=== PATIENT | male | born 1990 | race Caucasian/White ===

== ENCOUNTER 2018-12-16 06:08 | Emergency (ER) | payer SELFPAY ==
[2018-12-16] MEDS ORDERED: Sodium Chloride 0.9% 1,000 ML IV ONE (06:27)
--- NOTE | 2018-12-16 06:34 | EDM.PDOC ---
<Sidney Pappas - Last Filed: 12/16/18 06:46> ED HPI GENERAL MEDICAL PROBLEM - General Chief Complaint: Gastrointestinal Problem Stated Complaint: DIARRHEA Time Seen by Provider: 12/16/18 06:32 Source of Information: Reports: Patient - History of Present Illness INITIAL COMMENTS - FREE TEXT/NARRATIVE: HISTORY AND PHYSICAL: History of present illness: [Patient presents with loose stools he states up to 25 loose stools daily for four days no blood or mucus mild abdominal cramping No current fever nausea vomiting chills sweats ] Review of systems: As per history of present illness and below otherwise all systems reviewed and negative. Past medical history: As per history of present illness and as reviewed below otherwise noncontributory. Surgical history: As per history of present illness and as reviewed below otherwise noncontributory. Social history: No reported history of drug or alcohol abuse. Family history: As per history of present illness and as reviewed below otherwise noncontributory. Physical exam: HEENT: Atraumatic, normocephalic, pupils reactive, negative for conjunctival pallor or scleral icterus, mucous membranes moist, throat clear, neck supple, nontender, trachea midline. Lungs: Clear to auscultation, breath sounds equal bilaterally, chest nontender. Heart: S1S2, regular, negative for clicks, rubs, or JVD. Abdomen: Soft, nondistended, nontender. Negative for masses or hepatosplenomegaly. Negative for costovertebral tenderness. Pelvis: Stable nontender. Genitourinary: Deferred. Rectal: Deferred. Extremities: Atraumatic, negative for cords or calf pain. Neurovascular unremarkable. Neuro: Awake, alert, oriented. Cranial nerves II through XII unremarkable. Cerebellum unremarkable. Motor and sensory unremarkable throughout. Exam nonfocal. Diagnostics: [CBC CMP UA Stool culture, guaiac, O&P, c. diff Normal virus rotavirus Abdomen flat and upright Therapeutics: [Normal saline Patient will be signed out at shift change follow lab and redirect ] Impression: [Diarrhea ] Definitive disposition and diagnosis as appropriate pending reevaluation and review of above. abdominal cramps Pain Score (Numeric/FACES): 4 - Related Data Allergies Allergy/AdvReac Type Severity Reaction Status Date / Time No Known Allergies Allergy Verified 12/16/18 06:17 Home Meds: Home Meds . [No Known Home Meds] 12/16/18 [History] Past Medical History HEENT History: Reports: None Cardiovascular History: Reports: None Respiratory History: Reports: None Gastrointestinal History: Reports: None Genitourinary History: Reports: None Musculoskeletal History: Reports: None Neurological History: Reports: None Psychiatric History: Reports: Depression Endocrine/Metabolic History: Reports: None Hematologic History: Reports: None Immunologic History: Reports: None Oncologic (Cancer) History: Reports: None Dermatologic History: Reports: None - Infectious Disease History Infectious Disease History: Reports: None - Past Surgical History Head Surgeries/Procedures: Reports: None Social & Family History - Family History Family Medical History: Noncontributory - Tobacco Use Smoking Status *Q: Never Smoker - Caffeine Use Caffeine Use: Reports: Coffee, Energy Drinks - Recreational Drug Use Recreational Drug Use: No Course - Vital Signs Last Recorded V/S: Last Vital Signs Temp 36.4 C 12/16/18 06:18 Pulse 86 12/16/18 06:18 Resp 18 12/16/18 06:18 BP 130/82 12/16/18 06:18 Pulse Ox 98 12/16/18 06:18 - Orders/Labs/Meds Orders: Active Orders 24 hr Category Date Time Status CULTURE STOOL + CAMPY+SHIGATOX [RM] Stat Lab 12/16/18 06:30 Results NOROVIRUS, RT-PCR Stat Lab 12/16/18 07:21 Received OVA & PARASITES BY IMMUNOASSAY [MREF] Stat Lab 12/16/18 06:30 Ordered ROTAVIRUS ANTIGEN [MREF] Stat Lab 12/16/18 06:32 Ordered Isolation [COMM] Stat Oth 12/16/18 06:31 Ordered Labs: Laboratory Tests 12/16/18 12/16/18 12/16/18 Range/Units 06:28 06:44 06:44 WBC 7.09 (4.0-11.0) K/uL RBC 5.54 (4.50-5.90) M/uL Hgb 17.9 H (13.0-17.0) g/dL Hct 50.1 H (38.0-50.0) % MCV 90.4 (80.0-98.0) fL MCH 32.3 H (27.0-32.0) pg MCHC 35.7 (31.0-37.0) g/dL RDW Std Deviation 41.5 (28.0-62.0) fl RDW Coeff of Marvin 13 (11.0-15.0) % Plt Count 189 (150-400) K/uL MPV 9.50 (7.40-12.00) fL Neut % (Auto) 44.4 L (48.0-80.0) % Lymph % (Auto) 38.6 (16.0-40.0) % [place] % (Auto) 14.7 (0.0-15.0) % Eos % (Auto) 2.0 (0.0-7.0) % Baso % (Auto) 0.3 (0.0-1.5) % Neut # (Auto) 3.2 (1.4-5.7) K/uL Lymph # (Auto) 2.7 H (0.6-2.4) K/uL [place] # (Auto) 1.0 H (0.0-0.8) K/uL Eos # (Auto) 0.1 (0.0-0.7) K/uL Baso # (Auto) 0.0 (0.0-0.1) K/uL Nucleated RBC % 0.0 /100WBC Nucleated RBCs # 0 K/uL Sodium 134 L (136-148) mmol/L Potassium 3.8 (3.5-5.1) mmol/L Chloride 100 (98-107) mmol/L Carbon Dioxide 22.9 (21.0-32.0) mmol/L BUN 12 (7.0-18.0) mg/dL Creatinine 1.1 (0.8-1.3) mg/dL Est Cr Clr Drug Dosing TNP Estimated GFR (MDRD) > 60.0 ml/min Glucose 96 (74-106) mg/dL Calcium 8.9 (8.5-10.1) mg/dL Total Bilirubin 0.8 (0.2-1.0) mg/dL AST 48 H (15-37) IU/L ALT 75 H (14-63) IU/L Alkaline Phosphatase 95 (46-116) U/L Total Protein 8.7 H (6.4-8.2) g/dL Albumin 4.3 (3.4-5.0) g/dL Globulin 4.4 H (2.6-4.0) g/dL Albumin/Globulin Ratio 1.0 (0.9-1.6) Urine Color YELLOW Urine Appearance CLEAR Urine pH 6.0 (5.0-8.0) Ur Specific [place] 1.025 (1.001-1.035) Urine Protein NEGATIVE (NEGATIVE) mg/dL Urine Glucose (UA) NEGATIVE (NEGATIVE) mg/dL Urine Ketones NEGATIVE (NEGATIVE) mg/dL Urine Occult Blood NEGATIVE (NEGATIVE) Urine Nitrite NEGATIVE (NEGATIVE) Urine Bilirubin NEGATIVE (NEGATIVE) Urine Urobilinogen 0.2 (<2.0) EU/dL Ur Leukocyte Esterase NEGATIVE (NEGATIVE) Urine RBC 0-1 (0-2/HPF) Urine WBC 0-1 (0-5/HPF) Ur Epithelial Cells RARE (NONE-FEW) Urine Bacteria RARE (NEGATIVE) Meds: Medications Discontinued Medications Generic Name Dose Route Start Last Admin Trade Name Freq PRN Reason Stop Dose Admin Dicyclomine HCl 20 mg 12/16/18 07:04 12/16/18 07:23 Bentyl PO 12/16/18 07:05 20 mg ONETIME ONE Administration Sodium Chloride 1,000 mls @ 999 mls/hr 12/16/18 06:27 12/16/18 06:45 Normal Saline IV 12/16/18 07:27 999 mls/hr .Bolus ONE Administration Departure - Departure Disposition: Home, Self-Care 01 Clinical Impression: Diarrhea - Discharge Information Referrals: PCP,None [Primary Care Provider] - Forms: ED Department Discharge Additional Instructions: The following information is given to patients seen in the emergency department who are being discharged to home. This information is to outline your options for follow-up care. We provide all patients seen in our emergency department with a follow-up referral. The need for follow-up, as well as the timing and circumstances, are variable depending upon the specifics of your emergency department visit. If you don't have a primary care physician on staff, we will provide you with a referral. We always advise you to contact your personal physician following an emergency department visit to inform them of the circumstance of the visit and for follow-up with them and/or the need for any referrals to a consulting specialist. The emergency department will also refer you to a specialist when appropriate. This referral assures that you have the opportunity for followup care with a specialist. All of these measure are taken in an effort to provide you with optimal care, which includes your followup. Under all circumstances we always encourage you to contact your private physician who remains a resource for coordinating your care. When calling for followup care, please make the office aware that this follow-up is from your recent emergency room visit. If for any reason you are refused follow-up, please contact the [facility] emergency department at and ask to speak to the emergency department charge nurse. [facility] Primary care- Internal Medicine and Family [address] [address] Push hydration any potassium-rich foods such as bananas and whole gr. Please use Bentyl that you have been prescribed as needed for cramping. Please call and schedule a follow-up appointment in the clinic for further care and evaluation. Some of your stool testing will not be completed today and you'll be contacted if anything is positive that needs treatment. Return to ER as needed and as discussed <Mony Cantor - Last Filed: 12/16/18 09:25> ED HPI GENERAL MEDICAL PROBLEM - History of Present Illness INITIAL COMMENTS - FREE TEXT/NARRATIVE: Dr. Cantor dictating an addendum note is able to assume care of this patient at 7 AM. All outstanding labs and stool studies that were pending were checked by me and are negative. The patient does have outstanding stool studies that will not be completed for several days and was informed he will be contacted with those results if they're positive and needed treatment plan. She's been stressed to him that he needs to follow-up in the clinic push hydration and potassium rich foods and use Bentyl as needed for cramping. ED ROS GENERAL - Review of Systems Review Of Systems: ROS reveals no pertinent complaints other than HPI. ED EXAM, GENERAL - Physical Exam Exam: See Below (See dictation) Departure - Departure Time of Disposition: 09:24 Condition: Good
[2018-12-16] MEDS ORDERED: Dicyclomine 10 MG Cap PO ONE (07:04)
[2018-12-16 07:17] LABS: CHLORIDE,CL 100 mmol/L (98-107); SODIUM,NA 134 mmol/L (136-148)
--- NOTE | 2018-12-16 07:22 | CR ---
INDICATION: Abdominal pain; diarrhea for the last 3 days. COMPARISON: None. TECHNIQUE: Radiographic examination of the abdomen two-view study including upright. FINDINGS: Nonspecific intestinal gas pattern without any evidence of intestinal obstruction. No pneumoperitoneum. No abnormal intra-abdominal calcifications. IMPRESSION: Negative radiographic examination of the abdomen. Dictated by Moshe Ybarra MD @ Dec 16 2018 7:20AM Signed by Dr. Moshe Ybarra @ Dec 16 2018 7:21AM
== END 2018-12-16 09:32 | disposition home or self-care (01) ==
LOC: MW.ED 06:08
DX: R19.7 Diarrhea, unspecified (principal)
CPT/HCPCS: 74019; 80053; 81001; 82272; 85025; 87046; 87324; 87328; 87329; 87425; 87798; 87899; 96360; 99284; A9270; J7040

== ENCOUNTER 2020-01-28 03:06 | Emergency (ER) | payer BC ==
[2020-01-28] MEDS ORDERED: Sodium Chloride 0.9% 2.5 ML Syringe FLUSH PRN (03:36)
[2020-01-28] MEDS ORDERED: Sodium Chloride 0.9% 10 ML Syringe FLUSH PRN (03:36)
[2020-01-28] MEDS ORDERED: Acetaminophen 500 MG Tab PO ONE (03:36)
[2020-01-28] MEDS ORDERED: Sodium Chloride 0.9% 10 ML SDV IV PRN (03:36)
[2020-01-28 04:12] LABS: BLOOD UREA NITROGEN,BUN 17 mg/dL (7.0-18.0); CARBON DIOXIDE,CO2 27.1 mmol/L (21.0-32.0); CHLORIDE,CL 102 mmol/L (98-107); GLUCOSE RANDOM 104 mg/dL (74-106); LIPASE 55 U/L (73-393); POTASSIUM,K 4.3 mmol/L (3.5-5.1); SODIUM,NA 138 mmol/L (136-148)
[2020-01-28] MEDS ORDERED: Iopamidol 755 Mg/ML 100 ML Bottle IVPUSH ONE (04:31)
--- NOTE | 2020-01-28 05:25 | CT ---
INDICATION: Right upper quadrant pain. Right flank pain. COMPARISON: None available TECHNIQUE: CT examination of the abdomen and pelvis was performed with the uneventful intravenous administration of 100 cc of Isovue 370 while 3 mm thick axial sections were obtained from the lung bases through the pubic symphysis. Oral contrast was not administered. Please note that all CT scans at this facility use dose modulation, iterative reconstruction, and/or weight-based dosing when appropriate to reduce radiation dose to as low as reasonably achievable. FINDINGS: In the abdomen, the liver, spleen, pancreas, and adrenals are normal in appearance. The kidneys are normal in appearance. The gallbladder is normal in appearance. The abdominal aorta is normal in caliber with no sign of dilatation. There is no sign of retroperitoneal mass or adenopathy. The stomach, loops of small bowel, and colon in the abdomen are normal in appearance. In the pelvis, the appendix is normal in appearance with no sign of inflammatory process. The loops of small bowel and colon in the pelvis are normal in appearance. The prostate is normal in appearance. The urinary bladder is normal in appearance. There is no sign of pelvic or inguinal mass or adenopathy. There is no sign of free air or free fluid in the abdomen or pelvis. The lung bases are clear. There are multiple Schmorl`s nodes throughout the lumbar spine. There are multiple unfused limbus ossifications centers arising from the anterior T10, T12 and L4 vertebral bodies. IMPRESSION: Nothing seen to explain the patient`s right upper quadrant or right flank pain. Normal appearance of the gallbladder and right urinary system. Normal CT of the abdomen with contrast. Normal CT of the pelvis with contrast. Please note that all CT scans at this facility use dose modulation, iterative reconstruction, and/or weight-based dosing when appropriate to reduce radiation dose to as low as reasonably achievable. Dictated by Jayesh eJnnings MD @ Jan 28 2020 5:12AM Signed by Dr. Jayesh Jennings @ Jan 28 2020 5:24AM
--- NOTE | 2020-01-28 06:17 | EDM.PDOC ---
ED HPI GENERAL MEDICAL PROBLEM - General Chief Complaint: Abdominal Pain Stated Complaint: KIDNEY INFECTION Time Seen by Provider: 01/28/20 03:16 Source of Information: Reports: Patient History Limitations: Reports: No Limitations - History of Present Illness INITIAL COMMENTS - FREE TEXT/NARRATIVE: This is a 29-year-old male with no past medical history presenting with back pain. Patient reports a 2-day history of bilateral flank pain and right upper quadrant abdominal pain along with some nausea. Patient received a a particularly aggressive massage and is concerned that he may have strained his back. Nothing makes the pain better or worse. He does also complain of bilateral scrotal pain for the the same timeframe. He denies any gross hematuria, genital lesions, penile discharge, dysuria, urinary frequency. No self treatment prior to arrival, no other complaints. Abdomen Pain Score (Numeric/FACES): 7 - Related Data Allergies Allergy/AdvReac Type Severity Reaction Status Date / Time No Known Allergies Allergy Verified 01/28/20 03:20 Home Meds: Home Meds . 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 Hematologic History: Reports: None Immunologic History: Reports: None Oncologic (Cancer) History: Reports: None Dermatologic History: Reports: None - Infectious Disease History Infectious Disease History: Reports: None - Past Surgical History Head Surgeries/Procedures: Reports: None Social & Family History - Family History Family Medical History: Noncontributory - Tobacco Use Smoking Status *Q: Current Status Unknown - Caffeine Use Caffeine Use: Reports: Energy Drinks - Recreational Drug Use Recreational Drug Use: No ED ROS GENERAL - Review of Systems Review Of Systems: See Below Constitutional: Denies: Fever, Chills HEENT: Reports: No Symptoms Respiratory: Denies: Shortness of Breath Cardiovascular: Denies: Chest Pain Endocrine: Reports: No Symptoms GI/Abdominal: Reports: Abdominal Pain. Denies: Black Stool, Bloody Stool, Distension, Hematemesis, Hematochezia, Melena, Nausea, Vomiting : Reports: Flank Pain, Other (Bilateral testicular pain). Denies: Discharge, Dysuria, Frequency, Hematuria Musculoskeletal: Reports: No Symptoms Skin: Denies: Lesions Neurological: Denies: Headache Psychiatric: Reports: No Symptoms ED EXAM, GI/ABD - Physical Exam Exam: See Below Text/Narrative:: Vital signs reviewed. Nursing notes reviewed. Constitutional: Awake, alert, non-distressed. Head: Normocephalic, atraumatic. Eyes: EOMI, conjunctiva normal, no discharge, no scleral icterus. Ears, Nose, Throat: External ears and nose normal, moist oral mucosa. Cardiovascular: 2+ radial pulse, capillary refill less than 2 seconds. Pulmonary: normal work of breathing, no accessory muscle use. Abdomen/GI: Soft, nontender, nondistended, no guarding or rigidity, no masses. No CVA tenderness : Normal external exam of the penis and scrotum, no testicular tenderness, no epididymal tenderness Musculoskeletal: No deformities. Integumentary: Appropriate color for ethnicity, warm, dry, no pallor or jaundice , no rash. Neurologic: Alert, answering questions appropriately, normal speech, no facial droop, moving all extremities well. Psychiatric: Appropriate mood and affect, normal thought process. Course - Vital Signs Text/Narrative:: 29-year-old male with right flank and right upper quadrant abdominal pain. Patient hemodynamically stable, afebrile, well-appearing, looks nontoxic. Differential diagnosis includes but is not limited to: Cholecystitis, acute hepatitis, UTI, pyelonephritis, kidney stone, shingles, musculoskeletal strain/ sprain, intra-abdominal infection, orchitis, epididymitis, testicular torsion, Given extra strength Tylenol on arrival good relief of pain. IV access established and labs were sent. examination was unremarkable. CBC is unremarkable. Lactates normal. Electrolytes and renal function normal. Lipase is normal. AST and ALT are very minimally elevated, but not alarmingly so. Urinalysis shows small occult blood but no evidence of infection. CT abdomen/pelvis showed no acute findings. On reevaluation, flank pain is bilateral, which makes biliary pathology or shingles less likely. Patient appears nontoxic and shows no systemic signs of infection such as rigors or vomiting. exam was unremarkable. Presentation is not consistent with testicular torsion. No evidence of hernia on clinical examination or CT imaging. Etiology of patient's pain is not entirely clear, but given negative work-up and well appearance, patient is stable to discharge home with outpatient primary care follow-up. Recommended [id number] extra strength acetaminophen and ibuprofen along with heating pads and [id number] lidocaine patches. He was counseled to follow-up with a primary medicine clinic in the next few weeks for reevaluation of his microscopic hematuria. Strict ED return precautions were provided. Discharged in good condition with all questions answered prior to departure. Last Recorded V/S: Last Vital Signs Temp 36.2 C 01/28/20 03:21 Pulse 93 01/28/20 03:21 Resp 18 01/28/20 03:21 BP 132/84 01/28/20 03:21 Pulse Ox 98 01/28/20 03:21 - Orders/Labs/Meds Orders: Active Orders 24 hr Category Date Time Status Sodium Chloride 0.9% [Normal Saline] Med 01/28/20 03:36 Active 10 ml IV ASDIRECTED PRN Sodium Chloride 0.9% [Saline Flush] Med 01/28/20 03:36 Active 10 ml FLUSH ASDIRECTED PRN Sodium Chloride 0.9% [Saline Flush] Med 01/28/20 03:36 Active 2.5 ml FLUSH ASDIRECTED PRN Peripheral IV Insertion Adult [OM.PC] Stat Oth 01/28/20 03:36 Ordered Medication Orders Sodium Chloride (Saline Flush) 10 ml FLUSH ASDIRECTED PRN PRN Reason: Keep Vein Open Sodium Chloride (Saline Flush) 2.5 ml FLUSH ASDIRECTED PRN PRN Reason: Keep Vein Open Sodium Chloride (Normal Saline) 10 ml IV ASDIRECTED PRN PRN Reason: IV Use Labs: Laboratory Tests 01/28/20 01/28/20 01/28/20 Range/Units 03:20 03:40 03:40 WBC 8.87 (4.0-11.0) K/uL RBC 5.21 (4.50-5.90) M/uL Hgb 16.9 (13.0-17.0) g/dL Hct 49.5 (38.0-50.0) % MCV 95.0 (80.0-98.0) fL MCH 32.4 H (27.0-32.0) pg MCHC 34.1 (31.0-37.0) g/dL RDW Std Deviation 45.9 (28.0-62.0) fl RDW Coeff of Marvin 13 (11.0-15.0) % Plt Count 226 (150-400) K/uL MPV 9.60 (7.40-12.00) fL Neut % (Auto) 57.0 (48.0-80.0) % Lymph % (Auto) 30.7 (16.0-40.0) % [place] % (Auto) 9.5 (0.0-15.0) % Eos % (Auto) 2.7 (0.0-7.0) % Baso % (Auto) 0.1 (0.0-1.5) % Neut # (Auto) 5.1 (1.4-5.7) K/uL Lymph # (Auto) 2.7 H (0.6-2.4) K/uL [place] # (Auto) 0.8 (0.0-0.8) K/uL Eos # (Auto) 0.2 (0.0-0.7) K/uL Baso # (Auto) 0.0 (0.0-0.1) K/uL Nucleated RBC % 0.0 /100WBC Nucleated RBCs # 0 K/uL Lactate 1.9 (0.20-2.00) mmol/L Sodium (136-148) mmol/L Potassium (3.5-5.1) mmol/L Chloride (98-107) mmol/L Carbon Dioxide (21.0-32.0) mmol/L BUN (7.0-18.0) mg/dL Creatinine (0.8-1.3) mg/dL Est Cr Clr Drug Dosing mL/min Estimated GFR (MDRD) ml/min Glucose (74-106) mg/dL Calcium (8.5-10.1) mg/dL Total Bilirubin (0.2-1.0) mg/dL AST (15-37) IU/L ALT (14-63) IU/L Alkaline Phosphatase (46-116) U/L Total Protein (6.4-8.2) g/dL Albumin (3.4-5.0) g/dL Globulin (2.6-4.0) g/dL Albumin/Globulin Ratio (0.9-1.6) Lipase (73-393) U/L Urine Color YELLOW Urine Appearance CLEAR Urine pH 6.0 (5.0-8.0) Ur Specific [place] 1.010 (1.001-1.035) Urine Protein NEGATIVE (NEGATIVE) mg/dL Urine Glucose (UA) NEGATIVE (NEGATIVE) mg/dL Urine Ketones NEGATIVE (NEGATIVE) mg/dL Urine Occult Blood SMALL H (NEGATIVE) Urine Nitrite NEGATIVE (NEGATIVE) Urine Bilirubin NEGATIVE (NEGATIVE) Urine Urobilinogen 0.2 (<2.0) EU/dL Ur Leukocyte Esterase NEGATIVE (NEGATIVE) Urine RBC 0-2 (0-2/HPF) Urine WBC 0-1 (0-5/HPF) Ur Epithelial Cells RARE (NONE-FEW) Urine Bacteria RARE (NEGATIVE) 01/28/20 Range/Units 03:40 WBC (4.0-11.0) K/uL RBC (4.50-5.90) M/uL Hgb (13.0-17.0) g/dL Hct (38.0-50.0) % MCV (80.0-98.0) fL MCH (27.0-32.0) pg MCHC (31.0-37.0) g/dL RDW Std Deviation (28.0-62.0) fl RDW Coeff of Marvin (11.0-15.0) % Plt Count (150-400) K/uL MPV (7.40-12.00) fL Neut % (Auto) (48.0-80.0) % Lymph % (Auto) (16.0-40.0) % [place] % (Auto) (0.0-15.0) % Eos % (Auto) (0.0-7.0) % Baso % (Auto) (0.0-1.5) % Neut # (Auto) (1.4-5.7) K/uL Lymph # (Auto) (0.6-2.4) K/uL [place] # (Auto) (0.0-0.8) K/uL Eos # (Auto) (0.0-0.7) K/uL Baso # (Auto) (0.0-0.1) K/uL Nucleated RBC % /100WBC Nucleated RBCs # K/uL Lactate (0.20-2.00) mmol/L Sodium 138 (136-148) mmol/L Potassium 4.3 (3.5-5.1) mmol/L Chloride 102 (98-107) mmol/L Carbon Dioxide 27.1 (21.0-32.0) mmol/L BUN 17 (7.0-18.0) mg/dL Creatinine 1.3 (0.8-1.3) mg/dL Est Cr Clr Drug Dosing 93.68 mL/min Estimated GFR (MDRD) > 60.0 ml/min Glucose 104 (74-106) mg/dL Calcium 8.6 (8.5-10.1) mg/dL Total Bilirubin 0.4 (0.2-1.0) mg/dL AST 40 H (15-37) IU/L ALT 66 H (14-63) IU/L Alkaline Phosphatase 90 (46-116) U/L Total Protein 7.3 (6.4-8.2) g/dL Albumin 3.9 (3.4-5.0) g/dL Globulin 3.4 (2.6-4.0) g/dL Albumin/Globulin Ratio 1.1 (0.9-1.6) Lipase 55 L (73-393) U/L Urine Color Urine Appearance Urine pH (5.0-8.0) Ur Specific [place] (1.001-1.035) Urine Protein (NEGATIVE) mg/dL Urine Glucose (UA) (NEGATIVE) mg/dL Urine Ketones (NEGATIVE) mg/dL Urine Occult Blood (NEGATIVE) Urine Nitrite (NEGATIVE) Urine Bilirubin (NEGATIVE) Urine Urobilinogen (<2.0) EU/dL Ur Leukocyte Esterase (NEGATIVE) Urine RBC (0-2/HPF) Urine WBC (0-5/HPF) Ur Epithelial Cells (NONE-FEW) Urine Bacteria (NEGATIVE) Meds: Medications Generic Name Dose Route Start Last Admin Trade Name Freq PRN Reason Stop Dose Admin Sodium Chloride 10 ml 01/28/20 03:36 Saline Flush FLUSH ASDIRECTED PRN Keep Vein Open Sodium Chloride 2.5 ml 01/28/20 03:36 Saline Flush FLUSH ASDIRECTED PRN Keep Vein Open Sodium Chloride 10 ml 01/28/20 03:36 Normal Saline IV ASDIRECTED PRN IV Use Discontinued Medications Generic Name Dose Route Start Last Admin Trade Name Freq PRN Reason Stop Dose Admin Acetaminophen 1,000 mg 01/28/20 03:36 06/13/20 04:07 Tylenol Extra Strength PO 01/28/20 03:37 1,000 mg ONETIME ONE Administration Iopamidol 100 ml 01/28/20 04:31 01/28/20 04:37 [id number] (76%) IVPUSH 01/28/20 04:32 100 ml ONETIME ONE Administration Departure - Departure Time of Disposition: 06:15 Disposition: Home, Self-Care 01 Condition: Good Clinical Impression: Bilateral flank pain, Microscopic hematuria - Discharge Information *PRESCRIPTION DRUG MONITORING PROGRAM REVIEWED*: Not Applicable *COPY OF PRESCRIPTION DRUG MONITORING REPORT IN PATIENT AYESHA: Not Applicable Instructions: Flank Pain, Adult, Pain Without a Known Cause, Hematuria, Adult Referrals: [facility] - Family Practice [Provider Group] - 1 Week (For reevaluation of your symptoms and reevaluation of the blood in your urine.) Forms: ED Department Discharge Additional Instructions: Thank you for choosing the [facility] emergency department in [place] for your medical needs today. It was a pleasure caring for you. You were seen in the emergency department for flank pain. Your CT scan and blood work were unrevealing. There was a small amount of blood in your urine and this needs to be rechecked in the next 1 to 2 weeks, I would recommend making an appointment with the family medicine clinic to facilitate this. I recommend [id number] extra strength acetaminophen (1000 mg every 6 hours ) and ibuprofen (400 mg every 6 hours) to help treat your pain. A heating pad and [id number] lidocaine patches can also be useful. Please return the emergency department immediately if your symptoms worsen or if you feel worse. The following information is given to patients seen in the emergency department who are being discharged. This information is to outline your options for follow -up care. We provide all patients seen in our emergency department with a follow -up referral. The need for follow-up, as well as the timing and circumstances, are variable depending upon the specifics of your emergency department visit. If you don't have a primary care physician on staff, we will provide you with a referral. We always advise you to contact your personal physician following an emergency department visit to inform them of the circumstance of the visit and for follow-up with them and/or the need for any referrals to a consulting specialist. The emergency department will also refer you to a specialist when appropriate. This referral assures that you have the opportunity for follow-up care with a specialist. All of these measure are taken in an effort to provide you with optimal care, which includes your follow-up. Under all circumstances we always encourage you to contact your private physician who remains a resource for coordinating your care. When calling for follow-up care, please make the office aware that this follow-up is from your recent emergency room visit. If for any reason you are refused follow-up, please contact the [facility] Emergency Department at and asked to speak to the emergency department charge nurse. If you do not have a primary care physician that is caring for you, you can contact these clinics below to set up an appointment to establish care: [facility] - Primary Care [address] [place] [address] [place] [address] Sepsis Event Note (ED) - Evaluation Sepsis Screening Result: No Definite Risk - Focused Exam Vital Signs: Vital Signs Temp Pulse Resp BP Pulse Ox 01/28/20 03:21 36.2 C 93 18 132/84 98 - My Orders Last 24 Hours: My Active Orders 01/28/20 03:36 Sodium Chloride 0.9% [Normal Saline] 10 ml IV ASDIRECTED PRN Sodium Chloride 0.9% [Saline Flush] 10 ml FLUSH ASDIRECTED PRN Sodium Chloride 0.9% [Saline Flush] 2.5 ml FLUSH ASDIRECTED PRN Peripheral IV Insertion Adult [OM.PC] Stat - Assessment/Plan Last 24 Hours: My Active Orders 01/28/20 03:36 Sodium Chloride 0.9% [Normal Saline] 10 ml IV ASDIRECTED PRN Sodium Chloride 0.9% [Saline Flush] 10 ml FLUSH ASDIRECTED PRN Sodium Chloride 0.9% [Saline Flush] 2.5 ml FLUSH ASDIRECTED PRN Peripheral IV Insertion Adult [OM.PC] Stat
== END 2020-01-28 06:25 | disposition home or self-care (01) ==
LOC: MW.ED 03:06
DX: R10.11 Right upper quadrant pain (principal); R31.29 Other microscopic hematuria
CPT/HCPCS: 36415; 74177; 80053; 81001; 83605; 83690; 85025; 99284; A9270; Q9967; 99283